=== PATIENT | male | born 1955 | race Caucasian/White ===

== ENCOUNTER 2022-02-19 03:20 | Emergency (ER) | payer MEDICARE, OTHER ==
[~2022-02-19] VITALS: Ht 188 cm; Wt 127.0 kg
[2022-02-19 04:19] LABS: HEMOGLOBIN 17.4 gm/dl (14.0-17.5); RED BLOOD COUNT 5.12 M/UL (4.20-5.50); WHITE BLOOD COUNT 15.7 K/UL (4.5-11.0)
[2022-02-19 04:39] LABS: BUN/CREATININE RATIO 16 (0-10)
== END 2022-02-19 10:20 | disposition other institution (70) ==
LOC: ER1 03:20
PROVIDERS: Student in an Organized Health Care Education/Training Program
DX: K92.2 Gastrointestinal hemorrhage, unspecified (principal); K52.89 Other specified noninfective gastroenteritis and colitis; I48.91 Unspecified atrial fibrillation; I10 Essential (primary) hypertension; Z79.01 Long term (current) use of anticoagulants; Z20.822 Contact with and (suspected) exposure to COVID-19
CPT/HCPCS: 0240U; 36600; 71045; 71275; 80053; 82803; 85025; 85610; 85730; 86850; 86900; 86901; 93005; 96374; 99285; C9113; J0696; Q9967